=== PATIENT | female | born 1990 | race Caucasian/White ===

== ENCOUNTER → 2021-09-27 00:32 | Outpatient (CLI) | payer BC, SELFPAY ==
[2021-09-27 17:10] LABS: SARS-CoV-2 RNA PCR Negative
== END ==
PROVIDERS: PCP Nurse Practitioner Adult Health; Visit Provider Family Medicine
DX: R68.89 Other general symptoms and signs (principal); Z20.822 Contact with and (suspected) exposure to COVID-19
CPT/HCPCS: C9803; U0003; U0005

== ENCOUNTER → 2021-11-06 02:29 | Outpatient (CLI) | payer BC, SELFPAY ==
[2021-11-06 20:48] LABS: SARS-CoV-2 RNA PCR Positive
== END ==
PROVIDERS: PCP Nurse Practitioner Adult Health; Visit Provider Nurse Practitioner Adult Health
DX: U07.1 COVID-19 (principal)
CPT/HCPCS: C9803; U0003; U0005